=== PATIENT | male | born 1990 | race Caucasian/White ===

== ENCOUNTER 2018-03-06 17:13 | Emergency (ER) | payer SELFPAY ==
[~2018-03-06] VITALS: Ht 170.2 cm; Wt 78.3 kg
[2018-03-06] MEDS ORDERED: NARCAN4 MG NS (20:15)
[2018-03-06 20:22] VITALS: BP 125/61
== END 2018-03-06 20:29 | disposition home or self-care (01) ==
LOC: EME 17:13
DX: T40.1X1A Poisoning by heroin, accidental (unintentional), initial encounter (principal); F32.9 Major depressive disorder, single episode, unspecified; F41.9 Anxiety disorder, unspecified; F17.200 Nicotine dependence, unspecified, uncomplicated
CPT/HCPCS: 71045; 93005; 99281; 99284